=== PATIENT | female | born 1995 | race Caucasian/White ===

== ENCOUNTER 2021-08-16 14:50 | Emergency (ER) | payer MEDICAID, SELFPAY ==
--- NOTE | ~2021-08-16 | US_ITS ---
EXAMINATION: US OB <= 14 weeks fetus DATE: 08/16/2021 15:43 INDICATION: Vaginal bleeding during first trimester TECHNIQUE: Real-time pelvic transabdominal and transvaginal ultrasound was performed. COMPARISON: None. FINDINGS: The uterus measures 9.7 x 6.2 x 7.7 cm. There is an intrauterine gestational sac. A yolk s ac is identified. heart motion is identified measuring 153 beats per minute (bpm) by M-mode Dop pler. The crown rump length measures 4.7 cm , which correlates with an estimated gestational ag e of 11 weeks and 3 day(s) (+/-) 7 day(s). The right ovary is not visualized however no right adnexal abnormality is seen. The left ovary measur es 3.3 x 1.9 x 1.8 cm. There is normal vascular flow in the left ovary. There is no free fluid in the pelvis. IMPRESSION: 1. Live intrauterine with an estimated gestational age of 11 weeks and 3 day(s) (+/-) 7 day (s) and an estimated delivery date of 03/04/2022. 2. No sonographic correlate for the patient's symptoms. Reviewed, dictated and finalized at location A. IMPRESSION: 1. Live intrauterine with an estimated gestational age of 11 weeks an d 3 day(s) (+/-) 7 day(s) and an estimated delivery date of 03/04/2022. 2. No sonographic correlate for the patient's symptoms.
[2021-08-16 15:02] VITALS: BP 138/90; PULSE 100; RESP 16; TEMP 36.6; O2SAT 100
--- NOTE | 2021-08-16 15:06 | ED.PREGNANCY ---
HPI - General Chief complaint: Vaginal Bleeding Stated complaint: 11 wks preg, bleeding Time Seen by Provider: 08/16/21 15:04 History of Present Illness HPI Narrative: 25-year-old female presents to the emergency room for evaluation of vaginal bleeding. Patient is a patient states she is approximately 11 weeks . Patient states that she saturated 1 pad and noticed some clotting. Reports minimal amount of lower abdominal pain. Patient states that she has not had any care yet. Related Data Allergies Allergy/AdvReac Type Severity Reaction Status Date / Time No Known Allergies Allergy Verified 08/16/21 15:05 Review of Systems Review of Systems: CONSTITUTIONAL: Denies fever, chills, or sweats. EYES: Denies visual changes, redness, or discharge. ENT: Denies rhinorrhea, congestion, sore throat, or otalgia. CARDIOVASCULAR: Denies chest pain, palpitations, or edema. RESPIRATORY: Denies cough or dyspnea. GASTROINTESTINAL: Denies abdominal pain, nausea, vomiting, or diarrhea. GENITOURINARY: Reports Vach bleeding SKIN: Denies rash or itching. MUSCULOSKELETAL: Denies back pain, joint pain, or myalgia. NEUROLOGIC: Denies headache, numbness, dizziness, or weakness. PSYCHIATRIC: Denies anxiety or depression. Exam Narrative: GENERAL: Well-appearing, well-nourished, and in no acute distress. HEAD: Normocephalic, atraumatic. EYES: PERRLA and EOMI. CHEST: Clear to auscultation. No respiratory distress. No wheezes rales or rhonchi HEART: Regular rate and rhythm. No murmur heard. Normal peripheral pulses. ABDOMEN: Soft, nontender, nondistended, normal active bowel sounds. EXTREMITIES: Normal range of motion. No edema. SKIN: Warm, dry, no rash. NEURO: No focal deficits. Alert and oriented x3. PSYCH: Normal mood and affect. Course Vital Signs Vital signs: Vital Signs Temperature 36.6 C 08/16/21 15:02 Pulse Rate 100 08/16/21 15:02 Respiratory Rate 16 08/16/21 15:02 Blood Pressure 138/90 08/16/21 15:02 Pulse Oximetry 100 08/16/21 15:02 Oxygen Delivery Room Air 08/16/21 15:02 Temperature 36.6 C 08/16/21 15:02 Pulse Rate 100 08/16/21 15:02 Respiratory Rate 16 08/16/21 15:02 Blood Pressure 138/90 08/16/21 15:02 Pulse Oximetry 100 08/16/21 15:02 Oxygen Delivery Room Air 08/16/21 15:02 MDM - OB/Uterine Contractions MDM Narrative Medical decision making narrative: 25-year-old female presented to the emergency room suspected Vach bleeding first trimester of . Pelvic ultrasound shows no evidence of intrauterine bleeding. heart rate detected at 153 with a possible due date of February 2022. UA shows evidence of a urinary tract infection positive hematuria. Patient was placed on Macrobid and told to follow-up with [facility]. Lab Data Result diagrams: 08/16/21 15:36 08/16/21 15:36 Labs: Lab Results 08/16/21 08/16/21 08/16/21 Range/Units 15:36 15:36 15:36 WBC 10.5 H (4.5-10.0) K/mm3 RBC 4.65 (4.2-5.4) M/mm3 Hgb 13.0 (12.0-15.0) g/dL Hct 39.4 (37.0-47.0) % MCV 84.7 (80-100) fl MCH 28.0 (26-34) pg MCHC 33.0 (32-36) g/dl RDW 13.7 (11.5-14.5) % Plt Count 257 (150-375) k/mm3 MPV 10.0 (7.4-10.4) fl Immature Gran % (Auto) 0.3 (0-0.5) % Neut % (Auto) 73.8 H (45.5-73.1) % Lymph % (Auto) 19.6 (18.3-44.2) % [facility] % (Auto) 5.8 (2.6-8.5) % Eos % (Auto) 0.3 (0-4.4) % Baso % (Auto) 0.2 (0.2-1.2) % Lymph # (Auto) 2.06 (0.9-3.2) K/mm3 [facility] # (Auto) 0.6 (0.1-0.6) K/mm3 Eos # (Auto) 0.0 (0-0.3) K/mm3 Baso # (Auto) 0.0 (0.0-0.1) K/mm3 Abs Immat Gran (auto) 0.03 (0.00-0.031) K/mm3 Absolute Neuts (auto) 7.8 H (1.3-6.7) K/mm3 Absolute Nucleated RBC 0.0 (0.0-0.012) K/mm3 Nucleated RBC % 0.0 (0.0-0.2) % PT 12.8 (11.1-14.7) Seconds INR 1.0 Sodium 131 L (137-145) mmol/L Potassium 3.4 (3.4-5.0) mmol/
[2021-08-16 15:43] LABS: Basophils Percent Auto 0.2 % (0.2-1.2); Eosinophils Percent Auto 0.3 % (0-4.4); Hematocrit 39.4 % (37.0-47.0); Immature Granulocyte Absolute 0.03 K/mm3 (0.00-0.031); Immature Granulocyte Percent A 0.3 % (0-0.5); Lymphocytes Absolute Auto 2.06 K/mm3 (0.9-3.2); Lymphocytes Percent Auto 19.6 % (18.3-44.2); Mean Corpuscular Volume 84.7 fl (80-100); Monocytes Absolute Auto 0.6 K/mm3 (0.1-0.6); Monocytes Percent Auto 5.8 % (2.6-8.5); Neutrophils Absolute Auto 7.8 K/mm3 (1.3-6.7); Neutrophils Percent Auto 73.8 % (45.5-73.1); Platelet Count Result 257 k/mm3 (150-375); Red Blood Count 4.65 M/mm3 (4.2-5.4); Red Cell Distribution Width 13.7 % (11.5-14.5); White Blood Count 10.5 K/mm3 (4.5-10.0)
[2021-08-16 15:55] LABS: Prothrombin Time 12.8 Seconds (11.1-14.7)
[2021-08-16 16:14] LABS: Alanine Aminotransferase 9 U/L (6-35); Albumin Level 3.9 g/dL (3.5-5.1); Alkaline Phosphatase 44 U/L (38-126); Anion Gap 7 mmol/L (8-16); Aspartate Amino Transferase 15 U/L (14-36); Bilirubin,Total 0.3 mg/dL (0.2-1.3); Blood Urea Nitrogen 5 mg/dL (7-17); Calcium 8.7 mg/dL (8.4-10.2); Carbon Dioxide 22 mmol/L (22-30); Chloride 102 mmol/L (98-107); Estimated CRCL calculation 150 ml/min; Estimated Glomerular Filt Rate > 60; Glucose 89 mg/dL (65-110); Potassium 3.4 mmol/L (3.4-5.0); Sodium 131 mmol/L (137-145)
[2021-08-16 16:18] LABS: Appearance Urine Clear (Clear); Bilirubin Urine Negative (Negative); Blood Urine 3+ (Negative); Color Urine Yellow (Yellow); Glucose Urine UA Negative (Negative); Ketones Urine 4+ mg/dL (Negative); Leukocyte Esterase Ur 2+ LEU/UL (Negative); Nitrate Urine Negative (Negative); Protein Urine Negative (Negative); Specific Grav Ur 1.025 (1.001-1.035); Urobilinogen Urine 0.2 mg/dL (<2.0); pH Urine 5.5 (5.0-9.0)
[2021-08-16 16:21] LABS: Add Urine Microscopic? YES; Bacteria Urine Trace /hpf; Mucus Urine Rare /lpf; RBC Urine 51-75 /hpf (0-2); Squamous Epithelial Cell Urine Occasional /hpf (Few)
[2021-08-16 17:01] VITALS: BP 126/83; PULSE 92; RESP 18; O2SAT 97
== END 2021-08-16 17:10 | disposition home or self-care (01) ==
LOC: ANHED 16:47
PROVIDERS: Emergency Provider Nurse Practitioner Family
DX: O23.41 Unspecified infection of urinary tract in pregnancy, first trimester (principal); Z3A.11 11 weeks gestation of pregnancy
CPT/HCPCS: 36415; 76801; 80053; 81001; 84702; 85025; 85610; 86850; 86900; 86901; 99284

== ENCOUNTER 2022-02-07 14:38 | Outpatient (RCR) | payer OTHER, SELFPAY ==
--- NOTE | ~2022-02-07 | US_ITS ---
EXAMINATION: US OB BPP wo non-stress DATE: 02/07/2022 16:09 INDICATION: Nonreactive nonstress test, third trimester TECHNIQUE: Real-time pelvic ultrasound was performed. The interpreting radiologist was not present fo r the study. COMPARISON: None. FINDINGS: There is a single living fetus in vertex presentation. The placenta is anterior. heart rate is 141 beats per minute (bpm). The amniotic fluid index is 11.9 cm which is normal Biophysical profile performed by the technologist: breathing (30 sec sustained breathing in 30 minutes): 2 out of 2 movement (3 gross body movements in 30 minutes): 2 out of 2 tone (one episode of [id number]-cirmqlorw-fcyipjp limb movement): 2 out of 2 Amniotic fluid pocket (2 cm): 2 out of 2 Total score: 8 out of 8 IMPRESSION: 1. Single living fetus in vertex presentation. 2. Biophysical profile 8 out of 8. 3. Normal amniotic fluid index. Reviewed, dictated and finalized at location A. OPERATIONS TECHNICAL DIRECTOR
--- NOTE | 2022-02-07 16:20 | PC.NURSE ---
Spoke with Dr. Flores about patients nonreactive NST and BPP 10/03. Orders to discharge patient now and she will do a NST in office tomorrow. Her nurse will call her. Orders to eat first before NST. Orders to review kick counts and make sure she is doing them at home.
--- NOTE | 2022-02-07 16:28 | PC.NURSE ---
Discharge orders discussed with patient. Kick counts reviewed and handout given. D/c orders for NST tomorrow and to eat before discussed. S/s to return discussed including contractions, DFM, vaginal bleeding, leaking of fluid. Pt had no further questions.
[2022-02-07 16:29] VITALS: BP 109/68; PULSE 75
== END 2022-02-24 13:37 | disposition home or self-care (01) ==
LOC: ANHOBOP 14:38
PROVIDERS: Visit Provider Obstetrics & Gynecology
DX: O26.893 Other specified pregnancy related conditions, third trimester (principal); Z3A.36 36 weeks gestation of pregnancy
CPT/HCPCS: 59025; 76819

== ENCOUNTER 2022-02-21 20:04 | Inpatient (IN) | payer OTHER, SELFPAY ==
[2022-02-21 20:26] VITALS: BMI 33.7
--- NOTE | 2022-02-21 20:26 | LDADM ---
This patient, Gill Lobo, was admitted to Labor/Delivery/Recovery 107 on 02/21/22 at 20:04. Plans for labor, pain management and were discussed with patient. Patient/family oriented to hospital policies and general routines including ID bracelet, bed and alarms, visiting hours, pain management, procedures, bathroom and other care routines, personal items, smoking policy, room service/diet and guest tray routines, security routines, and visiting hours. Patient/Family are encouraged to report perceived risks to care and to ask questions if they do not understand what they are told or what they should do. See [facility]BIX for further documentation.
[2022-02-21 20:59] LABS: Basophils Percent Auto 0.3 % (0.2-1.2); Eosinophils Absolute Auto 0.1 K/mm3 (0-0.3); Eosinophils Percent Auto 0.7 % (0-4.4); Hematocrit 32.4 % (37.0-47.0); Hemoglobin 10.6 g/dL (12.0-15.0); Immature Granulocyte Absolute 0.04 K/mm3 (0.00-0.031); Immature Granulocyte Percent A 0.4 % (0-0.5); Lymphocytes Absolute Auto 2.06 K/mm3 (0.9-3.2); Lymphocytes Percent Auto 19.3 % (18.3-44.2); Mean Corpuscular HGB Conc 32.7 g/dl (32-36); Mean Corpuscular Hemoglobin 26.8 pg (26-34); Mean Platelet Volume 11.2 fl (7.4-10.4); Monocytes Absolute Auto 0.7 K/mm3 (0.1-0.6); Monocytes Percent Auto 6.2 % (2.6-8.5); Neutrophils Absolute Auto 7.8 K/mm3 (1.3-6.7); Neutrophils Percent Auto 73.1 % (45.5-73.1); Platelet Count Result 235 k/mm3 (150-375); Red Blood Count 3.95 M/mm3 (4.2-5.4); Red Cell Distribution Width 14.3 % (11.5-14.5); White Blood Count 10.7 K/mm3 (4.5-10.0)
[2022-02-21 21:14] VITALS: BP 109/79; PULSE 90
[2022-02-21] MEDS: DINOPROSTONE 10 MG VAG INSERT VAGINAL (21:15)
[2022-02-21 21:54] LABS: HIV 1/2 Ab P24 Ag Result Negative (Negative)
[2022-02-22] VITALS (21 sets, daily range): BP systolic 87–131; BP diastolic 55–88; PULSE 67–103; RESP 18; TEMP 36.4–37; O2SAT 99
--- NOTE | 2022-02-22 01:10 | WPDANESEPP ---
Anes - Eval Pre Procedure Procedure: labor epidural Date/Time: 02/22/22 01:10 Surgeon: mayda Preop Diagnosis: pain during labor Pre Op Diagnosis: IOL Patient Data Age: 26 Gender: F Height: 1.68 m Weight: 95 kg Last Vital Signs Pulse 90 02/21/22 21:14 BP 109/79 02/21/22 21:14 Allergies Allergy/AdvReac Type Severity Reaction Status Date / Time No Known Allergies Allergy Verified 02/01/22 14:43 Home Medications Medication Instructions Recorded Confirmed Type nitrofurantoin 100 mg PO Q12H 5 days #10 caps 08/16/21 02/21/22 Rx monohydrate/macrocrystals 100 mg capsule (Macrobid) Laboratory Tests 02/21/22 02/21/22 02/21/22 20:53 20:53 20:53 WBC 10.7 K/mm3 H K/mm3 (4.5-10.0) RBC 3.95 M/mm3 L M/mm3 (4.2-5.4) Hgb 10.6 g/dL L g/dL (12.0-15.0) Hct 32.4 % L % (37.0-47.0) MCV 82.0 fl fl (80-100) MCH 26.8 pg pg (26-34) MCHC 32.7 g/dl g/dl (32-36) RDW 14.3 % % (11.5-14.5) Plt Count 235 k/mm3 k/mm3 (150-375) MPV 11.2 fl H fl (7.4-10.4) Immature Gran % (Auto) 0.4 % % (0-0.5) Neut % (Auto) 73.1 % % (45.5-73.1) Lymph % (Auto) 19.3 % % (18.3-44.2) [place] % (Auto) 6.2 % % (2.6-8.5) Eos % (Auto) 0.7 % % (0-4.4) Baso % (Auto) 0.3 % % (0.2-1.2) Lymph # (Auto) 2.06 K/mm3 K/mm3 (0.9-3.2) [place] # (Auto) 0.7 K/mm3 H K/mm3 (0.1-0.6) Eos # (Auto) 0.1 K/mm3 K/mm3 (0-0.3) Baso # (Auto) 0.0 K/mm3 K/mm3 (0.0-0.1) Abs Immat Gran (auto) 0.04 K/mm3 H K/mm3 (0.00-0.031) Absolute Neuts (auto) 7.8 K/mm3 H K/mm3 (1.3-6.7) Absolute Nucleated RBC 0.0 K/mm3 K/mm3 (0.0-0.012) Nucleated RBC % 0.0 % % (0.0-0.2) RPR Pending HIV 1&2 Ab/P24 Ag 4thGn Negative (Negative) Blood Type Antibody Screen 02/21/22 20:53 WBC RBC Hgb Hct MCV MCH MCHC RDW Plt Count MPV Immature Gran % (Auto) Neut % (Auto) Lymph % (Auto) [place] % (Auto) Eos % (Auto) Baso % (Auto) Lymph # (Auto) [place] # (Auto) Eos # (Auto) Baso # (Auto) Abs Immat Gran (auto) Absolute Neuts (auto) Absolute Nucleated RBC Nucleated RBC % RPR HIV 1&2 Ab/P24 Ag 4thGn Blood Type A Positive Antibody Screen Negative Patient hx anesthesia problems: none Family hx anesthesia problems: none Results Review: All pre-operative results and documents have been reviewed as part of the pre-operative evaluation. [facility] Past Medical History Medical History (Updated 02/22/22 @ 01:11 by Princess Rendon CRNA) IUP (intrauterine ), incidental Obesity Family History Family History (Updated 02/01/22 @ 14:43 by Pura Avila RN) Father Diabetes mellitus Social History Social History Smoking status: Never smoker Substance use: former Last use: June 2021 Lack of Transportation: No Lack of Food: Never True Current Housing: I Have Housing Concerned About Future Housing: No Difficulty Paying Gas/Electric Bills: No Difficulty Paying for Meds: No Currently Unemployed: No Education: High School Diploma/GED Difficulty w/ Childcare or Family Care: No Spiritual care concerns: No Exam Day of Procedure 02/22/22 01:10
--- NOTE | 2022-02-22 07:51 | WPDOBADMIT ---
Obstetrics - Admit Note Admission Note: record reviewed. No pertinent additions to the history and/or any subsequent changes in the physical findings that are not consistent with the expected course of the were found. IOL Growth restriction <3%, anticipate vaginal delivery Additions to the history and/or subsequent changes in the physical findings follow. None.
[2022-02-22] MEDS: ACETAMINOPHEN 500 MG TABLET 1000 MG PO (08:25)
[2022-02-22] MEDS: LACTATED RINGERS 1,000 ML 125 ML IV CONT (10:14)
[2022-02-22] MEDS: OXYTOCIN 30 UNITS/NS 500 ML 30 UNITS/500 ML BAG 125 UNITS IV CONT ×2 (10:15→15:05)
--- NOTE | 2022-02-22 12:43 | PM.OBPNLAB ---
Pain Control Date/time seen: 02/22/22 12:43 Pelvic Exam Comments: 2-3/80/-2 AROM moderate amount of clear odorless fluid
[2022-02-22] MEDS: fentaNYL CITRATE INJ (*CRX) 100 MCG/2 ML VIAL 50 MCG IV PUSH (13:44)
[2022-02-22] MEDS: LIDOCAINE HCL 1% PF 30 ML VIAL (14:36)
--- NOTE | 2022-02-22 14:48 | PM.OBPRVD ---
OB - Delivery Note Procedure Delivery date: 02/22/22 Procedure: vaginal delivery Events: Intrauterine Growth Restriction (IUGR) Induction method: AROM, Per Pitocin Protocol and Per Cervidil Protocol Delivery monitor: External FHT, External Uterine, Internal FHT and Internal Uterine Route of delivery: Episiotomy description: None Laceration Description: Perineal - 2nd Degree Delivery repair: vicryl Specimen: Yes Quantitative Blood Loss (ml): 280 Anesthesia type: Local Disposition: Floor Baby Date of : 02/22/22 Time of : 14:29 Weeks of gestation at delivery: 38 Infant gender: Female Weight (pounds): 5 Weight (ounces): 9 presentation: vertex position: Left Occiput Anterior Placenta delivery description: Spontaneous Cord Vessel Description: 3 Vessels and Clamped/Cut score one minute: 7 score five minutes: 9 Narrative: baby to warmer, mother and baby in stable condition
[2022-02-22] MEDS: KETOROLAC 30 MG/ML VIAL (*BKC) IV PUSH (15:07)
[2022-02-22 16:15] LABS: Rapid Plasma Reagin Non-Reactive (NonReactive)
--- NOTE | 2022-02-22 17:35 | OBPPTRN ---
Patient transferred to post room #278 via wheelchair. Support person present. Oriented to unit, room, information board, rooming in, admission packet and security measures. Patient verbalizes understanding.
[2022-02-22] MEDS: IBUPROFEN 600 MG TABLET PO (23:41)
[2022-02-22] MEDS: ACETAMINOPHEN 325 MG TABLET 650 MG PO (23:42)
[2022-02-23] VITALS: BP 108/75; PULSE 85; RESP 18; TEMP 36.8
[2022-02-23 04:00] VITALS: BP 104/65; PULSE 75; RESP 18; TEMP 36.8
[2022-02-23 05:23] LABS: Hematocrit 27.5 % (37.0-47.0); Hemoglobin 8.9 g/dL (12.0-15.0)
[2022-02-23 07:40] VITALS: BP 108/75; PULSE 83; RESP 16; TEMP 36.6; O2SAT 100
--- NOTE | 2022-02-23 08:24 | PM.OBPNVD ---
OB - PN: Subj Subjective Date/time seen: 02/23/22 08:24 Patient comments: no complaints, pain well controlled, incisional pain, tolerating diet and flatus present OB - PN: Obj Data Labs 02/23/22 03:41 Labs: Laboratory Results - last 24 hr 02/21/22 02/23/22 20:53 03:41 Hgb 8.9 L Hct 27.5 L RPR Non-reactive OB - PN A/P Plan day: 1 Plan: routine care Comments: No problems, routine care Time Spent With Patient Time: Total time spent is greater than 50% in coordination of care (as documented) at patient's floor/unit and/or counseling patient: Exam Const: General: comfortable, no acute distress and alert Resp: Effort & Inspection: normal respiratory effort Auscultation: no crackles, no rales and no rhonchi Cardio: Rate: regular rate Heart sounds: no click, no murmurs and no rubs GI: Inspection: non-distended GI Palp: No Tenderness to palpation present (GI) Auscultation: normal bowel sounds Other: Incision - CDI Extrem: General: normal to inspection, no pedal edema and no calf tenderness
[2022-02-23] MEDS: IBUPROFEN 600 MG TABLET PO (08:57)
[2022-02-23] MEDS: ACETAMINOPHEN 325 MG TABLET 650 MG PO (08:57)
[2022-02-23] MEDS: DOCUSATE SODIUM 100 MG CAPSULE PO ×2 (08:57→17:30)
[2022-02-23] MEDS: POLYSACCHARIDE IRON COMPLEX 150 MG CAPSULE PO ×2 (08:57→17:30)
[2022-02-23 11:52] VITALS: BP 101/68; PULSE 81; RESP 16; TEMP 36.8; O2SAT 100
[2022-02-23 18:40] VITALS: BP 95/83; PULSE 95; RESP 18; TEMP 36.9
[2022-02-24 07:45] VITALS: BP 112/66; PULSE 77; RESP 18; TEMP 37.4; O2SAT 99
--- NOTE | 2022-02-24 07:52 | PM.OBPNVD ---
OB - PN: Subj Subjective Date/time seen: 02/24/22 07:52 doing well after vaginal delivery OB - PN: Obj Data Labs 02/23/22 03:41 OB - PN A/P Plan day: 2 Plan: routine care and discharge home Time Spent With Patient Time: Total time spent is greater than 50% in coordination of care (as documented) at patient's floor/unit and/or counseling patient: Review of Systems Review of Systems: All systems reviewed & are unremarkable except as noted in HPI and below Exam Const: General: cooperative, healthy appearing and comfortable
--- NOTE | 2022-02-24 07:53 | P.DS_ITS ---
DS: Admitting Diagnosis Discharge Date 02/24/22 Admitting Diagnosis IOL, IUGR DS: Discharge Diagnosis Discharge Diagnosis (1) Vaginal delivery: Code(s): O80 - Encounter for full-term uncomplicated delivery Status: Acute OB - DS: Summary OB Procedures : None OB Procedures Intrapartum: Spontaneous Vag Delivery OB Procedures: : None Time Spent with Patient Time attestation: Total time spent providing and/or coordinating discharge services: DS: Data Data Completed and Pending Pending studies at discharge: Pending at discharge 02/22/22 14:32 Surgical [PTH] Routine Discharge Plan Discharge Attending physician on discharge: Bala Palma Discharging Clinician: Kelly Jorgensen Patient Disposition: Home, Self-Care Activity: pelvic rest Diet: regular Patient Instructions: Antibiotic Form Stand Alone Forms: General Discharge Information Follow-up/Referrals: Kelly Jorgensen, CNM [Certified Nurse Liquid Floor And Wall Applier] - 4 Weeks Discharge Medications: New ibuprofen 600 mg Tablet 600 mg PO Q6H PRN (Reason: Cramping) Qty: 30 0RF No Action nitrofurantoin monohyd/m-cryst [Macrobid] 100 mg capsule 100 mg PO Q12H 5 Days Qty: 10 0RF Label Comments: no longer taking Rx Instructions: must administer with a meal/food Date of admission: 02/21/22 20:04 Primary Care Provider: UNKNOWN,DOCTOR Admitting Provider: Margarita Flores Attending physician on admission: Margarita Flores Condition: Stable
--- NOTE | 2022-02-24 07:54 | P.DS_ITS ---
DS: Admitting Diagnosis Discharge Date 02/24/22 Admitting Diagnosis IOL, IUGR OB - DS: Summary OB Procedures : None OB Procedures Intrapartum: Spontaneous Vag Delivery OB Procedures: : None Time Spent with Patient Time attestation: Total time spent providing and/or coordinating discharge services: DS: Data Data Completed and Pending Pending studies at discharge: Pending at discharge 02/22/22 14:32 Surgical [PTH] Routine Discharge Plan Discharge Attending physician on discharge: Bala Palma Discharging Clinician: Kelly Jorgensen Patient Disposition: Home, Self-Care Activity: pelvic rest Diet: regular Patient Instructions: Antibiotic Form Stand Alone Forms: General Discharge Information Follow-up/Referrals: Kelly Jorgensen, CNM [Certified Nurse Commercial Carpet Installer] - 4 Weeks Discharge Medications: New ibuprofen 600 mg Tablet 600 mg PO Q6H PRN (Reason: Cramping) Qty: 30 0RF No Action nitrofurantoin monohyd/m-cryst [Macrobid] 100 mg capsule 100 mg PO Q12H 5 Days Qty: 10 0RF Label Comments: no longer taking Rx Instructions: must administer with a meal/food Date of admission: 02/21/22 20:04 Primary Care Provider: UNKNOWN,DOCTOR Admitting Provider: Margarita Flores Attending physician on admission: Margarita Flores Condition: Stable
[2022-02-24] MEDS: DOCUSATE SODIUM 100 MG CAPSULE PO (10:36)
[2022-02-24] MEDS: IBUPROFEN 600 MG TABLET PO (10:36)
[2022-02-24] MEDS: POLYSACCHARIDE IRON COMPLEX 150 MG CAPSULE PO (10:36)
[2022-02-24] MEDS: TETANUS,DIPHTHERIA,AC PERTUSSIS ADULT (0.5 ML) BOOSTRIX IM (10:37)
[2022-02-25 10:34] VITALS: BP 125/83; PULSE 87; RESP 20; TEMP 36.8; O2SAT 100
== END 2022-02-24 11:58 | disposition home or self-care (01) | DRG 560 ==
LOC: ANHLDR 20:07 → ANHOB2 02-22 17:37
PROVIDERS: Advanced Practice Midwife; Admitting Provider Obstetrics & Gynecology; Visit Provider Obstetrics & Gynecology
DX: O36.5930 Maternal care for other known or suspected poor fetal growth, third trimester, not applicable or unspecified (principal); Z37.0 Single live birth; Z3A.38 38 weeks gestation of pregnancy; O36.8330 Maternal care for abnormalities of the fetal heart rate or rhythm, third trimester, not applicable or unspecified; O70.1 Second degree perineal laceration during delivery
CPT/HCPCS: 36415; 85014; 85018; 85025; 86592; 86703; 86850; 86900; 86901; 88307; 90715; A9270; G0432; J1885; J2590; J2795; J3010; J7120